=== PATIENT | male | born 1945 | race Caucasian/White ===

== ENCOUNTER → 2017-02-04 | Outpatient (CLI) | payer MEDICARE, BC ==
[~2017-02-04] MED LIST: ASPIRIN E.C. 8181 MG PO; BRILINTA90 MG PO; CRESTOR 10MG10 MG PO; LOVAZA1 GM PO; NITROSTAT0.4 MG/TAB SL; TIROSINT50 MC1 PO; TOPROL XL 50MG50 MG PO; ZESTRIL 20MG TA20 MG PO
== END ==
LOC: COL.VAS 12:21
DX: I36.1 Nonrheumatic tricuspid (valve) insufficiency (principal); I77.819 Aortic ectasia, unspecified site

== ENCOUNTER 2017-03-01 08:52 | Day surgery (SDC) | payer MEDICARE, BC ==
[2017-03-01] VITALS (597 sets, daily range): BP systolic 132–148; BP diastolic 75–94; PULSE 74–96; TEMP 97.8–98.2; O2SAT 93–100
[~2017-03-01] VITALS: Ht 170.3 cm; Wt 78.0 kg
[2017-03-01 09:26] LABS: HEMOGLOBIN 16.5 g/dl (13.5-18.0); MEAN CELL VOLUME 96 fl (80.0-100.0); MEAN CORPUSCULAR HEMOGLOBIN 33 pg (27.0-31.0); MEAN CORPUSCULAR HGB CONC 34 g/dl (33.0-37.0); PLATELET COUNT 221 K/mm3 (130-400); RED BLOOD COUNT 4.98 M/mm3 (4.20-5.60); REDCELL DISTRIBUTION WIDTH-CV 13.1 % (11.5-14.5)
[2017-03-01 09:32] LABS: INR 0.9 (0.8-3.0); PROTHROMBIN TIME 9.5 SECONDS (9.7-12.8)
[2017-03-01 09:46] LABS: CALCIUM 9.2 mg/dL (8.4-10.2); CREATININE, serum 0.83 mg/dL (0.66-1.25); POTASSIUM 4.3 mmol/L (3.4-5.0)
[2017-03-01] MEDS ORDERED: ASPIRIN E.C. 8181 MG PO (09:50)
[2017-03-01] MEDS ORDERED: TOPROL XL 50MG50 MG PO (09:51)
[2017-03-01] MEDS ORDERED: ZESTRIL 20MG TA20 MG PO (09:51)
[2017-03-01] MEDS ORDERED: CRESTOR 10MG10 MG PO (09:52)
[2017-03-01] MEDS ORDERED: TIROSINT50 MC1 PO (09:53)
--- NOTE | 2017-03-01 11:50 | NUR ---
pt to eu 9 via bed from supervisor labor gang, Angiomax infuses at 28cc/hr till gone. Son in room, reviewed bedrest and activity with pt, call light in reach. takes water, no meal ordered at this time, EKG done.
--- NOTE | 2017-03-01 12:35 | NUR ---
report called to Deya in ICU for transfer to #3, explained to pt.
--- NOTE | 2017-03-01 12:40 | NUR ---
ooze to right groin, slab conditioner supervisor calledTerence here con't pressure applied, area remains soft, no c/o back pain. new dressing applied after pressure held
--- NOTE | 2017-03-01 13:00 | NUR ---
Patient groin site has small ooze of blood on dressing femstop pressure increased, charge nurse Deysi HOUSE notified, will continue to monitor.
--- NOTE | 2017-03-01 13:15 | NUR ---
area had ooze, quarter size, surrounding area remains soft. laborer adjustable steel joist called, [place] HOUSE here, stem stop applied with light pressure, approx 20, orders written by laborer adjustable steel joist, site is clean and dry.
--- NOTE | 2017-03-01 13:30 | NUR ---
Patient arrived to the floor via stretcher, vitals stable, patient alert and oriented x4, denies pain, femstop on right groin site, dressing clean, dry, and intact, skin soft, no signs of hematoma, laying flat in bed, no needs expressed at this time, call light within reach, will continue to monitor.
--- NOTE | 2017-03-01 13:35 | NUR ---
pt to ICU 3 via bed, transferred with slide board, femstop remains in place, no changes in assessment after transfer
--- NOTE | 2017-03-01 16:16 | NUR ---
Femop removed, Landon HOUSE pinched the skin for four minutes and applied a new dressing, pulses 2+, will continue to monitor
--- NOTE | 2017-03-01 17:40 | NUR ---
Patient got up to commode to have a BM, after returning back to bed this nurse assessed groin site and a small hematoma had formed, dressing was CDI, pressure applied and Charge Nurse notified at assessed hematoma, held pressure until area became soft, patient pulses remain easily palpable, will continue to monitor.
--- NOTE | 2017-03-01 20:19 | NUR ---
VSS. DENIES CHEST PAIN, REPORTS GROIN SITE TENDER. UP TO TOILET TO VOID. RIGHT GROIN SITE CHECKED AFTER WITHOUT S/S DRAINAGE OR HEMATOMA NOTED. ASSESSMENT PER FLOWSHEET. CALL LIGHT WITHIN REACH. WILL CONTINUE TO MONITOR.
[2017-03-02] VITALS (359 sets, daily range): BP systolic 133–147; BP diastolic 74–82; PULSE 83–95; TEMP 97.4–97.8; O2SAT 92–99
--- NOTE | 2017-03-02 01:57 | NUR ---
up to the bathroom as needed. right groin site remains wnl, without drainage noted. vss. resting in bed, call light within reach.
[2017-03-02 05:34] LABS: HEMATOCRIT 43.3 % (42.0-52.0); HEMOGLOBIN 14.8 g/dl (13.5-18.0); MEAN CELL VOLUME 96 fl (80.0-100.0); MEAN CORPUSCULAR HEMOGLOBIN 33 pg (27.0-31.0); MEAN CORPUSCULAR HGB CONC 34 g/dl (33.0-37.0); MEAN PLATELET VOLUME 9.3 fl (7.4-10.4); PLATELET COUNT 196 K/mm3 (130-400); RED BLOOD COUNT 4.52 M/mm3 (4.20-5.60); REDCELL DISTRIBUTION WIDTH-CV 12.9 % (11.5-14.5)
[2017-03-02 05:54] LABS: CALCIUM 8.6 mg/dL (8.4-10.2); CREATININE, serum 0.82 mg/dL (0.66-1.25); POTASSIUM 3.7 mmol/L (3.4-5.0)
--- NOTE | 2017-03-02 07:10 | NUR ---
Bedside report recieved from LACY Romo. Assessment complete, right femoral groin site soft without hematoma, dressing clean, dry and intact, but very tender to touch. Patient denies needs at this time, call light within reach.
--- NOTE | 2017-03-02 09:02 | NUR ---
NCM met with patient to review discharge plan. Patient lives at home with his and their son here in [place], [place]. Patient lives in one level story house with basement and their son lives in the basement. He does not have advance directives. Patient is completely independent with ADL's and does not use any DME. His PCP is Dr. Torey Gilman, [facility], [place] and uses [facility] for hie medications. Patient plans to return home upon discharge, no anticipated needs.
--- NOTE | 2017-03-02 10:24 | NUR ---
Initial visit; Patient thanked Nylon Winder for looking in on him and offering God's blessings.
[2017-03-02] MEDS ORDERED: BRILINTA90 MG PO (10:44)
--- NOTE | 2017-03-02 10:50 | NUR ---
Patient resting in bed, denies needs at this time.
[2017-03-02] MEDS ORDERED: LOVAZA1 GM PO (11:53)
[2017-03-02] MEDS ORDERED: NITROSTAT0.4 MG/TAB SL (11:54)
--- NOTE | 2017-03-02 12:14 | NUR ---
Discharge instructions given, INT removed (tip intact) questions invited and answered, patient out to private vehicle.
== END 2017-03-02 12:15 | disposition home or self-care (01) ==
LOC: COL.CAR 08:52 → ICU 11:51 → COL.CAR 03-02 12:15
PROVIDERS: Internal Medicine Cardiovascular Disease
DX: R06.02 Shortness of breath (principal); I25.10 Atherosclerotic heart disease of native coronary artery without angina pectoris; R94.39 Abnormal result of other cardiovascular function study
CPT/HCPCS: OP; C1760; C1769; C1874; C1887; C1894; C9600; J0583; J2250; J3010; Q9967

== ENCOUNTER 2017-06-10 00:05 | Inpatient (IN) | payer MEDICARE, BC ==
[2017-06-10] VITALS (671 sets, daily range): BP systolic 102–170; BP diastolic 61–79; PULSE 56–97; TEMP 97–98.6; O2SAT 90–100
[~2017-06-10] VITALS: Ht 167.6 cm; Wt 75.5 kg
[2017-06-10] MEDS ORDERED: PRESERVISION1 SGL PO (00:15)
[2017-06-10] MEDS ORDERED: ZYLOPRIM 100MG100 MG PO (00:15)
[2017-06-10 00:27] LABS: BASO # 0.1 (0.0-0.2); BASO % 0.6 % (0.0-2.0); EOS # 0.3 (0.0-0.7); EOS % 2.2 % (0-4.0); GRAN # 7.9 (1.4-6.5); GRAN % 65.6 % (42.2-75.2); HEMATOCRIT 41.8 % (42.0-52.0); HEMOGLOBIN 13.9 g/dl (13.5-18.0); LYMPH # 2.4 (1.2-3.4); LYMPH % 20.3 % (20.0-51.0); MEAN CELL VOLUME 97 fl (80.0-100.0); MEAN CORPUSCULAR HEMOGLOBIN 32 pg (27.0-31.0); MEAN CORPUSCULAR HGB CONC 33 g/dl (33.0-37.0); MEAN PLATELET VOLUME 9.6 fl (7.4-10.4); MONO # 1.3 (0.1-0.6); MONO % 10.6 % (1.7-9.3); PLATELET COUNT 218 K/mm3 (130-400); RED BLOOD COUNT 4.29 M/mm3 (4.20-5.60)
[2017-06-10 00:29] LABS: INR 0.9 (0.8-3.0); PROTHROMBIN TIME 10.7 SECONDS (9.7-12.8)
[2017-06-10 00:31] LABS: PARTIAL THROMBOPLASTIN TIME 28.3 SECONDS (26.0-37.0)
[2017-06-10 00:33] LABS: ADJUSTED CALCIUM 9.5 mg/dL (8.4-10.2); ALANINE AMINOTRANSFERASE 48 U/L (21-72); ALKALINE PHOSPHATASE 68 U/L (50-136); ANION GAP 11 mmol/L (7-16); BILIRUBIN,TOTAL 0.6 mg/dL (0.0-1.0); BLOOD UREA NITROGEN 10 mg/dL (9-20); CALCIUM 9.5 mg/dL (8.4-10.2); CARBON DIOXIDE 25 mmol/L (22-30); CHLORIDE 104 mmol/L (98-107); CREATININE, serum 0.82 mg/dL (0.66-1.25); GLUCOSE 113 mg/dL (74-106); POTASSIUM 4.1 mmol/L (3.4-5.0); SODIUM 139 mmol/L (137-145); TOTAL PROTEIN 7.3 gm/dL (6.4-8.2)
[2017-06-10 01:14] LABS: TROPONIN-I < 0.012 ng/mL (0.000-0.034)
[2017-06-10 05:02] LABS: BASO # 0.1 (0.0-0.2); BASO % 0.4 % (0.0-2.0); EOS # 0.1 (0.0-0.7); GRAN # 9.4 (1.4-6.5); GRAN % 80.3 % (42.2-75.2); LYMPH # 1.1 (1.2-3.4); LYMPH % 9.5 % (20.0-51.0); MEAN CELL VOLUME 98 fl (80.0-100.0); MEAN CORPUSCULAR HGB CONC 33 g/dl (33.0-37.0); MEAN PLATELET VOLUME 9.7 fl (7.4-10.4); MONO % 8.2 % (1.7-9.3); PLATELET COUNT 175 K/mm3 (130-400); RED BLOOD COUNT 3.54 M/mm3 (4.20-5.60); WHITE BLOOD COUNT 11.7 K/mm3 (4.8-10.8)
[2017-06-10 05:04] LABS: HEMATOCRIT 34.6 % (42.0-52.0); HEMOGLOBIN 11.4 g/dl (13.5-18.0); MEAN CORPUSCULAR HEMOGLOBIN 32 pg (27.0-31.0)
[2017-06-10 05:14] LABS: ADJUSTED CALCIUM 8.9 mg/dL (8.4-10.2); ALBUMIN 2.9 gm/dL (3.5-5.0); BILIRUBIN,TOTAL 0.5 mg/dL (0.0-1.0); CREATININE, serum 0.69 mg/dL (0.66-1.25); POTASSIUM 3.8 mmol/L (3.4-5.0); TOTAL PROTEIN 5.8 gm/dL (6.4-8.2)
[2017-06-10 09:00] LABS: PARTIAL THROMBOPLASTIN TIME 26.1 SECONDS (26.0-37.0)
[2017-06-10 10:33] LABS: MUCOUS Present /lpf; PH 5 (5-8); SQUAMOUS EPITHELIAL 0-2 /hpf; URINE APPEARANCE Clear; URINE BACTERIA None Seen /hpf; URINE BILIRUBIN Negative (NEGATIVE); URINE BLOOD Negative (NEGATIVE); URINE COLOR Yellow; URINE GLUCOSE Negative (NEGATIVE); URINE KETONE Trace (NEGATIVE); URINE LEUKOCYTE ESTERASE Negative (NEGATIVE); URINE PROTEIN(semi-quant) Negative (NEGATIVE); URINE RBC 0-2 /hpf; URINE UROBILINOGEN Negative (NEGATIVE); URINE WBC 0-2 /hpf
[2017-06-10 10:41] LABS: COLLECTION METHOD CLEAN CATCH
[2017-06-10 10:47] LABS: HEMATOCRIT 33.4 % (42.0-52.0)
[2017-06-10 14:45] LABS: HEMATOCRIT 29.8 % (42.0-52.0); HEMOGLOBIN 9.9 g/dl (13.5-18.0)
[2017-06-10 22:05] LABS: HEMATOCRIT 28.6 % (42.0-52.0); HEMOGLOBIN 9.5 g/dl (13.5-18.0)
[2017-06-11] VITALS (422 sets, daily range): BP systolic 120–154; BP diastolic 62–87; PULSE 83–89; TEMP 97.1–98.7; O2SAT 91–100
[2017-06-11 04:23] LABS: CALCIUM 8.1 mg/dL (8.4-10.2); CREATININE, serum 0.66 mg/dL (0.66-1.25); POTASSIUM 3.5 mmol/L (3.4-5.0)
[2017-06-12] VITALS: BP 118/59; PULSE 80; TEMP 98.2
[2017-06-12 04:00] VITALS: BP 113/66; PULSE 85; TEMP 98.9
[2017-06-12 07:35] LABS: BASO % 0.3 % (0.0-2.0); EOS # 0.3 (0.0-0.7); EOS % 1.9 % (0-4.0); GRAN # 9.2 (1.4-6.5); GRAN % 71.5 % (42.2-75.2); LYMPH # 1.7 (1.2-3.4); LYMPH % 12.8 % (20.0-51.0); MEAN CELL VOLUME 101 fl (80.0-100.0); MEAN CORPUSCULAR HGB CONC 32 g/dl (33.0-37.0); MONO # 1.7 (0.1-0.6); MONO % 12.8 % (1.7-9.3); PLATELET COUNT 190 K/mm3 (130-400); RED BLOOD COUNT 3.27 M/mm3 (4.20-5.60); WHITE BLOOD COUNT 12.9 K/mm3 (4.8-10.8)
[2017-06-12 07:56] LABS: CALCIUM 9.5 mg/dL (8.4-10.2); CREATININE, serum 0.72 mg/dL (0.66-1.25); HEMATOCRIT 32.9 % (42.0-52.0); HEMOGLOBIN 10.5 g/dl (13.5-18.0); MEAN CORPUSCULAR HEMOGLOBIN 32 pg (27.0-31.0); POTASSIUM 4.1 mmol/L (3.4-5.0)
[2017-06-12 08:00] VITALS: BP 111/53; PULSE 90; TEMP 98.4
[2017-06-12 12:00] VITALS: BP 114/53; PULSE 82; TEMP 98.7
[2017-06-12] MEDS ORDERED: FERROUS SU325 MG/TAB PO (14:04)
== END 2017-06-12 14:44 | disposition home or self-care (01) | DRG 394 ==
LOC: COL.ER 00:05 → ICU 02:07 → SURG 06-11 14:03 → ICU 06-11 14:03 → SURG 06-12 14:44
PROVIDERS: Emergency Medicine; Family Medicine; Internal Medicine; Nurse Practitioner Family
PROC: 0DBN8ZX Excision of Sigmoid Colon, Via Natural or Artificial Opening Endoscopic, Diagnostic (ICD-10-PCS; principal; 2017-06-09)
PROC: 0W3P8ZZ Control Bleeding in Gastrointestinal Tract, Via Natural or Artificial Opening Endoscopic (ICD-10-PCS; 2017-06-10)
DX: K63.5 Polyp of colon (principal); K62.5 Hemorrhage of anus and rectum; D62 Acute posthemorrhagic anemia; K63.3 Ulcer of intestine; I95.1 Orthostatic hypotension; I10 Essential (primary) hypertension; I25.10 Atherosclerotic heart disease of native coronary artery without angina pectoris; E78.5 Hyperlipidemia, unspecified; M10.9 Gout, unspecified; E03.9 Hypothyroidism, unspecified; K57.30 Diverticulosis of large intestine without perforation or abscess without bleeding; Z95.5 Presence of coronary angioplasty implant and graft; Z87.891 Personal history of nicotine dependence; Z86.73 Personal history of transient ischemic attack (TIA), and cerebral infarction without residual deficits
CPT/HCPCS: 99223-AI; 99233-AI; 99239; C9113; G8987-GO; G8988-GO; J1644; J2250; J3010; J7030

== ENCOUNTER 2017-06-21 15:16 | Outpatient (RCR) | payer MEDICARE, BC ==
[~2017-06-21 15:16] MED LIST changes: +FERROUS SU325 MG/TAB PO; +PRESERVISION1 SGL PO; +ZYLOPRIM 100MG100 MG PO
== END 2017-06-24 | disposition home or self-care (01) ==
LOC: COL.CR
DX: Z48.812 Encounter for surgical aftercare following surgery on the circulatory system (principal); Z95.5 Presence of coronary angioplasty implant and graft; I25.10 Atherosclerotic heart disease of native coronary artery without angina pectoris

== ENCOUNTER 2017-07-02 14:34 | Outpatient (RCR) | payer MEDICARE, BC | END 2017-07-07 12:54 | disposition home or self-care (01) | LOC: COL.CR 14:34 | DX: Z48.812 Encounter for surgical aftercare following surgery on the circulatory system (principal); Z95.5 Presence of coronary angioplasty implant and graft; I25.10 Atherosclerotic heart disease of native coronary artery without angina pectoris ==

== ENCOUNTER 2017-09-10 10:03 | Emergency (ER) | payer MEDICARE, BC ==
[~2017-09-10] VITALS: Ht 167.6 cm; Wt 75.0 kg
[2017-09-10 10:09] VITALS: BP 143/93; PULSE 106; TEMP 976
[2017-09-10 11:00] LABS: BASO # 0.1 (0.0-0.2); EOS # 0.3 (0.0-0.7); EOS % 4.5 % (0-4.0); GRAN # 4.1 (1.4-6.5); GRAN % 64.5 % (42.2-75.2); HEMATOCRIT 46.3 % (42.0-52.0); HEMOGLOBIN 15.4 g/dl (13.5-18.0); LYMPH # 1.3 (1.2-3.4); LYMPH % 20.1 % (20.0-51.0); MEAN CELL VOLUME 96 fl (80.0-100.0); MEAN CORPUSCULAR HEMOGLOBIN 32 pg (27.0-31.0); MEAN CORPUSCULAR HGB CONC 33 g/dl (33.0-37.0); MONO # 0.6 (0.1-0.6); MONO % 9.3 % (1.7-9.3); PLATELET COUNT 275 K/mm3 (130-400); RED BLOOD COUNT 4.85 M/mm3 (4.20-5.60); REDCELL DISTRIBUTION WIDTH-CV 13.3 % (11.5-14.5)
[2017-09-10 11:03] LABS: INR 0.9 (0.8-3.0); PROTHROMBIN TIME 10.9 SECONDS (9.7-12.8)
[2017-09-10 11:09] LABS: ALBUMIN 4.3 gm/dL (3.5-5.0); BILIRUBIN,TOTAL 0.3 mg/dL (0.0-1.0); CALCIUM 9.3 mg/dL (8.4-10.2); CREATININE, serum 0.76 mg/dL (0.66-1.25); POTASSIUM 4.4 mmol/L (3.4-5.0); TOTAL PROTEIN 7.9 gm/dL (6.4-8.2)
[2017-09-10] MEDS ORDERED: AMOXICILLIN 8751 TAB PO (12:06)
[2017-09-10] MEDS ORDERED: NORCO 325 MG-51 TAB PO (12:06)
== END 2017-09-10 12:30 | disposition home or self-care (01) ==
LOC: COL.ER 10:03
PROVIDERS: Family Medicine
DX: S02.2XXA Fracture of nasal bones, initial encounter for closed fracture (principal); R04.0 Epistaxis; I48.91 Unspecified atrial fibrillation; Z79.82 Long term (current) use of aspirin; W01.198A Fall on same level from slipping, tripping and stumbling with subsequent striking against other object, initial encounter

== ENCOUNTER 2018-02-13 09:54 | Inpatient (IN) | payer MEDICARE, BC ==
[~2018-02-13] VITALS: Ht 167.6 cm; Wt 75.5 kg
[2018-02-13] VITALS (7 sets, daily range): BP systolic 115–139; BP diastolic 56–77; PULSE 77–98; TEMP 98.2–98.6
[~2018-02-13 09:54] MED LIST changes: +AMOXICILLIN 8751 TAB PO; +NORCO 325 MG-51 TAB PO
[2018-02-13 10:25] LABS: BASO # 0.1 (0.0-0.2); BASO % 1.2 % (0.0-2.0); EOS # 0.1 (0.0-0.7); EOS % 1.8 % (0-4.0); GRAN # 4.5 (1.4-6.5); GRAN % 68.8 % (42.2-75.2); HEMATOCRIT 44.6 % (42.0-52.0); HEMOGLOBIN 15.2 g/dl (13.5-18.0); LYMPH % 15.4 % (20.0-51.0); MEAN CELL VOLUME 94 fl (80.0-100.0); MEAN CORPUSCULAR HEMOGLOBIN 32 pg (27.0-31.0); MEAN CORPUSCULAR HGB CONC 34 g/dl (33.0-37.0); MEAN PLATELET VOLUME 9.2 fl (7.4-10.4); MONO # 0.8 (0.1-0.6); MONO % 12.2 % (1.7-9.3); PLATELET COUNT 202 K/mm3 (130-400); RED BLOOD COUNT 4.74 M/mm3 (4.20-5.60)
[2018-02-13 10:29] LABS: INR 0.9 (0.8-3.0); PROTHROMBIN TIME 10.3 SECONDS (9.7-12.8)
[2018-02-13 10:32] LABS: PARTIAL THROMBOPLASTIN TIME 30.5 SECONDS (26.0-37.0)
[2018-02-13 10:41] LABS: ALBUMIN 4.2 gm/dL (3.5-5.0); BILIRUBIN,TOTAL 0.7 mg/dL (0.0-1.0); CALCIUM 9.2 mg/dL (8.4-10.2); CREATININE, serum 0.73 mg/dL (0.66-1.25); POTASSIUM 3.9 mmol/L (3.4-5.0); TOTAL PROTEIN 7.8 gm/dL (6.4-8.2)
[2018-02-13 13:21] LABS: BASO # 0.1 (0.0-0.2); BASO % 0.6 % (0.0-2.0); EOS % 0.3 % (0-4.0); GRAN # 9.6 (1.4-6.5); GRAN % 86.3 % (42.2-75.2); HEMATOCRIT 38.1 % (42.0-52.0); LYMPH # 0.7 (1.2-3.4); LYMPH % 6.4 % (20.0-51.0); MEAN CELL VOLUME 95 fl (80.0-100.0); MEAN CORPUSCULAR HEMOGLOBIN 32 pg (27.0-31.0); MEAN CORPUSCULAR HGB CONC 33 g/dl (33.0-37.0); MEAN PLATELET VOLUME 9.9 fl (7.4-10.4); MONO # 0.7 (0.1-0.6); MONO % 5.9 % (1.7-9.3); PLATELET COUNT 180 K/mm3 (130-400); RED BLOOD COUNT 4.03 M/mm3 (4.20-5.60)
[2018-02-13 13:22] LABS: HEMOGLOBIN 12.7 g/dl (13.5-18.0)
[2018-02-13 17:11] LABS: HEMOGLOBIN 12.5 g/dl (13.5-18.0)
[2018-02-13 17:12] LABS: HEMATOCRIT 35.5 % (42.0-52.0)
[2018-02-13 21:20] LABS: HEMOGLOBIN 11.6 g/dl (13.5-18.0)
[2018-02-13 21:30] LABS: HEMATOCRIT 33.6 % (42.0-52.0)
[2018-02-14] VITALS (19 sets, daily range): BP systolic 105–148; BP diastolic 35–81; PULSE 75–104; TEMP 98–99.3
[2018-02-14 01:04] LABS: HEMATOCRIT 29.6 % (42.0-52.0); HEMOGLOBIN 10.1 g/dl (13.5-18.0)
[2018-02-14 06:10] LABS: BASO # 0.1 (0.0-0.2); BASO % 0.7 % (0.0-2.0); EOS # 0.1 (0.0-0.7); EOS % 1.2 % (0-4.0); GRAN # 6.6 (1.4-6.5); GRAN % 72.5 % (42.2-75.2); LYMPH # 1.1 (1.2-3.4); LYMPH % 12.1 % (20.0-51.0); MEAN CELL VOLUME 96 fl (80.0-100.0); MEAN CORPUSCULAR HGB CONC 33 g/dl (33.0-37.0); MEAN PLATELET VOLUME 10.1 fl (7.4-10.4); MONO # 1.2 (0.1-0.6); MONO % 12.8 % (1.7-9.3); PLATELET COUNT 141 K/mm3 (130-400); RED BLOOD COUNT 2.72 M/mm3 (4.20-5.60); REDCELL DISTRIBUTION WIDTH-CV 14.2 % (11.5-14.5)
[2018-02-14 06:12] LABS: HEMATOCRIT 26.2 % (42.0-52.0); HEMOGLOBIN 8.7 g/dl (13.5-18.0); MEAN CORPUSCULAR HEMOGLOBIN 32 pg (27.0-31.0)
[2018-02-14 06:22] LABS: ALBUMIN 2.5 gm/dL (3.5-5.0); BILIRUBIN,TOTAL 1.1 mg/dL (0.0-1.0); CALCIUM 7.1 mg/dL (8.4-10.2); CREATININE, serum 0.61 mg/dL (0.66-1.25); POTASSIUM 3.5 mmol/L (3.4-5.0); TOTAL PROTEIN 5.1 gm/dL (6.4-8.2)
[2018-02-14 09:13] LABS: HEMATOCRIT 26.1 % (42.0-52.0); HEMOGLOBIN 8.9 g/dl (13.5-18.0)
[2018-02-14 15:54] LABS: MEAN CELL VOLUME 93 fl (80.0-100.0); MEAN CORPUSCULAR HGB CONC 34 g/dl (33.0-37.0); PLATELET COUNT 118 K/mm3 (130-400); RED BLOOD COUNT 2.65 M/mm3 (4.20-5.60); REDCELL DISTRIBUTION WIDTH-CV 14.1 % (11.5-14.5)
[2018-02-14 15:58] LABS: HEMATOCRIT 24.7 % (42.0-52.0); HEMOGLOBIN 8.5 g/dl (13.5-18.0); MEAN CORPUSCULAR HEMOGLOBIN 32 pg (27.0-31.0)
[2018-02-14 21:55] LABS: MEAN CELL VOLUME 93 fl (80.0-100.0); MEAN CORPUSCULAR HGB CONC 35 g/dl (33.0-37.0); MEAN PLATELET VOLUME 9.8 fl (7.4-10.4); PLATELET COUNT 105 K/mm3 (130-400); RED BLOOD COUNT 2.35 M/mm3 (4.20-5.60); REDCELL DISTRIBUTION WIDTH-CV 14.1 % (11.5-14.5)
[2018-02-14 22:02] LABS: HEMATOCRIT 21.8 % (42.0-52.0); HEMOGLOBIN 7.6 g/dl (13.5-18.0); MEAN CORPUSCULAR HEMOGLOBIN 32 pg (27.0-31.0)
[2018-02-15] VITALS (14 sets, daily range): BP systolic 115–152; BP diastolic 62–81; PULSE 71–112; TEMP 98–99.1
[2018-02-15 03:11] LABS: HEMATOCRIT 24.9 % (42.0-52.0); HEMOGLOBIN 8.5 g/dl (13.5-18.0)
[2018-02-15 06:31] LABS: BASO % 0.5 % (0.0-2.0); EOS # 0.1 (0.0-0.7); EOS % 1.6 % (0-4.0); GRAN # 5.2 (1.4-6.5); GRAN % 64.3 % (42.2-75.2); LYMPH # 1.5 (1.2-3.4); LYMPH % 18.8 % (20.0-51.0); MEAN CELL VOLUME 93 fl (80.0-100.0); MEAN CORPUSCULAR HGB CONC 34 g/dl (33.0-37.0); MEAN PLATELET VOLUME 10.2 fl (7.4-10.4); MONO # 1.1 (0.1-0.6); MONO % 14.1 % (1.7-9.3); PLATELET COUNT 110 K/mm3 (130-400); RED BLOOD COUNT 2.65 M/mm3 (4.20-5.60); REDCELL DISTRIBUTION WIDTH-CV 14.5 % (11.5-14.5)
[2018-02-15 06:42] LABS: HEMATOCRIT 24.5 % (42.0-52.0); HEMOGLOBIN 8.4 g/dl (13.5-18.0); MEAN CORPUSCULAR HEMOGLOBIN 32 pg (27.0-31.0)
[2018-02-15 06:53] LABS: CALCIUM 7.1 mg/dL (8.4-10.2); CREATININE, serum 0.6 mg/dL (0.66-1.25); POTASSIUM 3.2 mmol/L (3.4-5.0)
[2018-02-15 14:15] LABS: HEMATOCRIT 26.8 % (42.0-52.0); HEMOGLOBIN 9.5 g/dl (13.5-18.0)
[2018-02-15] MEDS ORDERED: FERROUS SU325 MG/TAB PO (14:23)
[2018-02-15] MEDS ORDERED: FOLIC ACID 11 MG/TA1 PO (14:24)
[2018-02-15] MEDS ORDERED: THIAMINE 1100 MG/TAB PO (14:24)
== END 2018-02-15 15:30 | disposition home or self-care (01) | DRG 378 ==
LOC: COL.ER 09:54 → SURG 12:07
PROVIDERS: Emergency Medicine; Family Medicine; Hospitalist; Internal Medicine Gastroenterology; Physician Assistant
PROC: 0DJD8ZZ Inspection of Lower Intestinal Tract, Via Natural or Artificial Opening Endoscopic (ICD-10-PCS; principal; 2018-02-14 12:30)
DX: K57.31 Diverticulosis of large intestine without perforation or abscess with bleeding (principal); D62 Acute posthemorrhagic anemia; D12.2 Benign neoplasm of ascending colon; I25.10 Atherosclerotic heart disease of native coronary artery without angina pectoris; Z95.5 Presence of coronary angioplasty implant and graft; I10 Essential (primary) hypertension; Z87.891 Personal history of nicotine dependence; E87.6 Hypokalemia; E78.5 Hyperlipidemia, unspecified; F10.20 Alcohol dependence, uncomplicated
CPT/HCPCS: OP; 99223-AI; 99232-AI; 99239; G0378; J2704; J7030; P9016; Q9967

== ENCOUNTER 2018-08-06 11:59 | Emergency (ER) | payer MEDICARE, BC ==
[~2018-08-06] VITALS: Ht 167.6 cm; Wt 77.3 kg
[~2018-08-06 11:59] MED LIST changes: +FOLIC ACID 11 MG/TA1 PO; +THIAMINE 1100 MG/TAB PO
[2018-08-06 12:02] VITALS: BP 122/66; TEMP 99
[2018-08-06] MEDS ORDERED: COLCRYS0.6 MG PO (12:22)
[2018-08-06] MEDS ORDERED: ASPIRIN 81M81 MG/TA2 PO (12:23)
[2018-08-06] MEDS ORDERED: FLEXERIL 1010 MG/TAB PO (13:21)
[2018-08-06] MEDS ORDERED: NORCO 325 MG-51 TAB PO (13:21)
[2018-08-06 13:41] VITALS: PULSE 89
== END 2018-08-06 13:41 | disposition home or self-care (01) ==
LOC: COL.ER 11:59
DX: M54.42 Lumbago with sciatica, left side (principal); M54.41 Lumbago with sciatica, right side; I10 Essential (primary) hypertension

== ENCOUNTER → 2018-12-20 | Outpatient (CLI) | payer MEDICARE, BC ==
[~2018-12-20] MED LIST changes: +ASPIRIN 81M81 MG/TA2 PO; +COLCRYS0.6 MG PO; +FLEXERIL 1010 MG/TAB PO
== END ==
LOC: COL.RAD 12:37
DX: M47.26 Other spondylosis with radiculopathy, lumbar region (principal)

== ENCOUNTER 2019-03-07 10:04 | Inpatient (IN) | payer MEDICARE, BC ==
[~2019-03-07] VITALS: Ht 167.6 cm; Wt 80.2 kg
[2019-03-22] VITALS (9 sets, daily range): BP systolic 115–146; BP diastolic 43–72; PULSE 53–75; TEMP 97–98.5
[2019-03-22] MEDS ORDERED: PREDNISONE10 MG PO (07:43)
[2019-03-22] MEDS ORDERED: REVATIO20 MG PO (07:48)
--- NOTE | 2019-03-22 12:07 | NUR ---
PT ADMITTED AMBULATORY TO ROOM 332. ASSESSMENTS COMPLETE, IV TO RIGHT WRIST FLUIDS RUNNING PER ORDERS. PRE OP MEDS GIVEN ORDERED.
--- NOTE | 2019-03-22 16:14 | NUR ---
PT TO ROOM 332 PER BED WITH [facility] CASE MANAGER REPORT @ 1550. PT IS A/O X3, LUNGS CLEAR DRESSING TO LEFT HIP CDI WITH FOAM TAPE OVER INCISION. PEDAL PULSES PALPABLE. IV TO PUMP, TEDS AND SCDS BILATERALLY.
--- NOTE | 2019-03-22 20:00 | NUR ---
PATIENT IS A&O. VSS. NO C/O PAIN. PATIENT AMBULATED IN HALLWAY DOWN TO THE MEDICAL UNIT AND BACK WITHOUT DIFFICULTY. GAIT STEADY. PAIN WELL MANAGED. RIGHT HIP DRESSING IS CD&I.
--- NOTE | 2019-03-23 01:00 | NUR ---
PATIENT STILL UNABLE TO VOID POST OP. PATIENT DENIES URGE. BLADDER SCAN SHOWED 205CC. WILL CONTINUE TO MONITOR
--- NOTE | 2019-03-23 03:30 | NUR ---
PATIENT AMBULATED TO BATHROOM AND WAS ABLE TO VOI 425CC OF LUIS ENRIQUE COLORED URINE. PATIENT BACK IN BED RESTING. NO C/O PAIN. NO NEEDS.
[2019-03-23 03:34] VITALS: BP 118/61; PULSE 68; TEMP 97.8
[2019-03-23 06:44] LABS: HEMATOCRIT 35.6 % (42.0-52.0)
--- NOTE | 2019-03-23 08:12 | NUR ---
Patient A&O, denies pain and discomfort. VSS. IV CDI. Occlusive dressing left hip, CDI. Patient instructed to call nursing staff for assistance back to bed. Patient was assisted to BSC by nursing staff and walked self back to bed without assistance. PT walked by patients room and saw patient on hands and knees with buttucks in the air trying to get back into bed. Patient verbalized that he will call nursing staff for assistance. No further needs expressed from patient. Call light within reach
[2019-03-23 08:55] VITALS: BP 116/55; PULSE 79; TEMP 98.1
--- NOTE | 2019-03-23 10:35 | NUR ---
First visit from the cloth pattern maker. No needs right now.
[2019-03-23] MEDS ORDERED: NORCO 325 MG-7.1 TAB PO (12:00)
[2019-03-23] MEDS ORDERED: XARELTO10 MG PO (12:00)
[2019-03-23] MEDS ORDERED: ROXICODONE 55 MG/TAB PO (12:03)
[2019-03-23 12:36] VITALS: BP 120/50; PULSE 85; TEMP 99
--- NOTE | 2019-03-23 15:11 | NUR ---
SW met with patient to discuss discharge planning. Patient lives independently at home with is and plans to return there later today. Patient's PCP is Dr Gilman and he obtains prescriptions from [facility]. Patient has a walker and cane for ambulation but does not require any other DME. Patient's doctor reports patient will not require formal PT post op. SW does not anticipate any discharge needs.
--- NOTE | 2019-03-23 15:20 | NUR ---
Discharge paperwork reviewed with patient and family. Patient verbalized an understanding of following doctors orders. Signs and symptoms and incision care reviewed with patient. IV removed, tip intact, patient tolerated well. Gauze and bandaid applied. Patient transfered by wheelchair by nursing staff to vehicle. Family, personal belongings and discharge paperwork with patient. No further needs expressed from patient.
== END 2019-03-23 15:26 | disposition home or self-care (01) | DRG 470 ==
LOC: JCC 03-22 07:30
PROVIDERS: ADMIT Orthopaedic Surgery
PROC: 0SRB0JZ Replacement of Left Hip Joint with Synthetic Substitute, Open Approach (ICD-10-PCS; principal; 2019-03-22 13:00)
DX: M16.12 Unilateral primary osteoarthritis, left hip (principal); M81.0 Age-related osteoporosis without current pathological fracture; E78.00 Pure hypercholesterolemia, unspecified; I10 Essential (primary) hypertension; Z87.891 Personal history of nicotine dependence
CPT/HCPCS: A9284; C1776; J0690; J1100; J1885; J2250; J2405; J2704; J3010; J7120

== ENCOUNTER → 2019-03-15 | Outpatient (CLI) | payer MEDICARE, BC | LOC: COL.LAB 11:47 | DX: Z01.812 Encounter for preprocedural laboratory examination (principal) ==

== ENCOUNTER 2019-08-19 12:19 | Observation (INO) | payer MEDICARE, BC ==
[~2019-08-19] VITALS: Ht 167.6 cm; Wt 83.3 kg
[~2019-08-19 12:19] MED LIST changes: +NORCO 325 MG-7.1 TAB PO; +PREDNISONE10 MG PO; +REVATIO20 MG PO; +ROXICODONE 55 MG/TAB PO; -TOPROL XL 50MG50 MG PO; +XARELTO10 MG PO
[2019-08-19 12:42] LABS: BASO # 0.1 (0.0-0.2); BASO % 0.7 % (0.0-2.0); EOS # 0.1 (0.0-0.7); EOS % 1.1 % (0-4.0); GRAN # 5.1 (1.4-6.5); GRAN % 64.2 % (42.2-75.2); HEMATOCRIT 40.8 % (42.0-52.0); HEMOGLOBIN 13.8 g/dl (13.5-18.0); LYMPH # 1.9 (1.2-3.4); LYMPH % 24.1 % (20.0-51.0); MEAN CELL VOLUME 93 fl (80.0-100.0); MEAN CORPUSCULAR HEMOGLOBIN 31 pg (27.0-31.0); MEAN CORPUSCULAR HGB CONC 34 g/dl (33.0-37.0); MEAN PLATELET VOLUME 9.4 fl (7.4-10.4); MONO # 0.8 (0.1-0.6); MONO % 9.5 % (1.7-9.3); PLATELET COUNT 152 K/mm3 (130-400); REDCELL DISTRIBUTION WIDTH-CV 13.7 % (11.5-14.5)
[2019-08-19 12:48] VITALS: BP 136/73; PULSE 70
[2019-08-19 12:53] LABS: ALANINE AMINOTRANSFERASE 61 U/L (21-72); ALBUMIN 4.3 gm/dL (3.5-5.0); ALCOHOL(ethanol),MEDICAL 101 mg/dL; ALKALINE PHOSPHATASE 68 U/L (50-136); ANION GAP 14 mmol/L (7-16); AST,SGOT 83 U/L (15-37); BILIRUBIN,TOTAL 0.7 mg/dL (0.0-1.0); BLOOD UREA NITROGEN 15 mg/dL (9-20); CALCIUM 8.7 mg/dL (8.4-10.2); CARBON DIOXIDE 20 mmol/L (22-30); CHLORIDE 105 mmol/L (98-107); CREATININE, serum 1.07 (0.66-1.25); GLUCOSE 113 mg/dL (74-106); MAGNESIUM 1.9 mg/dL (1.6-2.3); POTASSIUM 4.3 mmol/L (3.4-5.0); SODIUM 138 mmol/L (137-145); TOTAL PROTEIN 7.6 gm/dL (6.4-8.2)
[2019-08-19 13:09] LABS: TROPONIN-I < 0.012 ng/mL (0.000-0.035)
[2019-08-19 13:48] LABS: COLLECTION METHOD CLEAN CATCH
[2019-08-19 14:18] LABS: MUCOUS Present /lpf; PH 5 (5-8); SQUAMOUS EPITHELIAL 0-2 /hpf; URINE APPEARANCE Hazy; URINE BACTERIA None Seen /hpf; URINE BILIRUBIN Negative (NEGATIVE); URINE BLOOD 2+ (NEGATIVE); URINE COLOR Yellow; URINE GLUCOSE Negative (NEGATIVE); URINE KETONE Negative (NEGATIVE); URINE LEUKOCYTE ESTERASE Negative (NEGATIVE); URINE NITRATE Negative (NEGATIVE); URINE PROTEIN(semi-quant) 1+ (NEGATIVE); URINE RBC 0-2 /hpf; URINE UROBILINOGEN Negative (NEGATIVE)
[2019-08-19] MEDS ORDERED: VTAMINC250TA (15:39)
[2019-08-19 17:23] VITALS: BP 146/76; PULSE 91; TEMP 97.9
--- NOTE | 2019-08-19 18:43 | NUR ---
Patient is A/O with tremor. Patient speech is clear. Denies any pain. Vitals are within parameters. He scored 8 on CIWA. I gave 1mg of Ativan. Patient is currently resting in bed.
[2019-08-19 19:04] VITALS: BP 132/74; PULSE 91; TEMP 98.2
[2019-08-19 21:50] VITALS: BP 121/55; PULSE 90; TEMP 99
--- NOTE | 2019-08-19 23:20 | NUR ---
RESTING/SLEEPING. NO CHANGE IN MENTAL STATUS. PT COOPERATIVE. PT HAS NOT SCORED HIGH ENOUGH FOR ATIVAN THE LAST 2 DETOX EVALS.
[2019-08-19 23:25] VITALS: BP 117/58; PULSE 84; TEMP 98.4
[2019-08-20 02:16] VITALS: BP 117/62; PULSE 87; TEMP 98.6
[2019-08-20 04:00] VITALS: BP 132/64; PULSE 87; TEMP 98.9
[2019-08-20 06:05] VITALS: BP 96/44; PULSE 77; TEMP 98.7
--- NOTE | 2019-08-20 06:28 | NUR ---
PT IN BED. NO N/V. ALERT AND ORIENTED x3. SOME MILD TREMORS HAS BEEN THE ONLY CONSTANT THING NOTED ON PT TONIGHT.
[2019-08-20 07:48] VITALS: BP 124/68; PULSE 81; TEMP 98.8
--- NOTE | 2019-08-20 09:02 | NUR ---
Pt assessment complete. Pt is sitting on side of bed upon entry, he is A/O x4. His breathing is even and unlabored on RA. Pt denies any pain or SOB. No N/V this am. Dizziness and nausea on movement has improved. No hallucinations present. Tremors visible but does not meet criteria for Ativan at this time. IVF infusing without complications. Pt has no needs at this time. Call light within reach.
[2019-08-20 09:33] LABS: BASO # 0.1 (0.0-0.2); BASO % 0.9 % (0.0-2.0); EOS # 0.1 (0.0-0.7); EOS % 1.2 % (0-4.0); GRAN # 5.1 (1.4-6.5); GRAN % 67.5 % (42.2-75.2); LYMPH # 1.1 (1.2-3.4); LYMPH % 15.2 % (20.0-51.0); MEAN CELL VOLUME 93 fl (80.0-100.0); MEAN CORPUSCULAR HEMOGLOBIN 32 pg (27.0-31.0); MEAN CORPUSCULAR HGB CONC 34 g/dl (33.0-37.0); MEAN PLATELET VOLUME 10.3 fl (7.4-10.4); MONO # 1.1 (0.1-0.6); MONO % 14.9 % (1.7-9.3); PLATELET COUNT 128 K/mm3 (130-400); REDCELL DISTRIBUTION WIDTH-CV 13.6 % (11.5-14.5)
[2019-08-20 09:36] LABS: HEMATOCRIT 35.5 % (42.0-52.0)
[2019-08-20 09:44] LABS: CALCIUM 8.4 mg/dL (8.4-10.2); CREATININE, serum 0.83 (0.66-1.25); POTASSIUM 4.2 mmol/L (3.4-5.0)
[2019-08-20 10:10] VITALS: BP 123/67; PULSE 79; TEMP 99
[2019-08-20] MEDS ORDERED: TOPROL XL 50MG50 MG PO (13:25)
== END 2019-08-20 14:53 | disposition home or self-care (01) ==
LOC: COL.ER 12:19 → MEDICAL 14:21
PROVIDERS: Emergency Medicine; ADMIT Hospitalist
DX: R55 Syncope and collapse (principal); I10 Essential (primary) hypertension; E78.5 Hyperlipidemia, unspecified; F10.20 Alcohol dependence, uncomplicated; M10.9 Gout, unspecified; I08.1 Rheumatic disorders of both mitral and tricuspid valves; Z79.82 Long term (current) use of aspirin; Z87.891 Personal history of nicotine dependence
CPT/HCPCS: G0378; J1650; J2060; J3411; J3475; J7030

== ENCOUNTER 2020-04-26 07:12 | Day surgery (SDC) | payer MEDICARE, BC ==
[~2020-04-26] VITALS: Ht 170.2 cm; Wt 73.1 kg
[~2020-04-26 07:12] MED LIST changes: +TOPROL XL 50MG50 MG PO; +VTAMINC250TA
[2020-04-26] MEDS ORDERED: REVATIO20 MG PO (07:30)
[2020-04-26 07:37] VITALS: BP 115/69; PULSE 75; TEMP 97.8
[2020-04-26 08:50] VITALS: BP 107/60; PULSE 60; TEMP 98
--- NOTE | 2020-04-26 08:50 | NUR ---
TO BAY 5 VIA CART FROM ENDO ROOM, WALKED TO CHAIR, CALL LIGHT IN REACH. IN ROOM. DECLINES DRINK OR SNACK.
[2020-04-26 09:05] VITALS: BP 107/60; PULSE 60
[2020-04-26 09:20] VITALS: BP 111/68; PULSE 60
--- NOTE | 2020-04-26 09:20 | NUR ---
DR CESPEDES SEE PT, PT UP IN ROOM DRESSED, IV D'CD. REVIEWED DISCHARGE INST. WITH PT AND ON ACTIVITY, FOLLOWUP, PRECAUTIONS WITH VERBAL UNDERSTANDING. PT WAS DISCHARGED VIA W/C TO CAR AT 0986
== END 2020-04-26 09:25 | disposition home or self-care (01) ==
LOC: SDCO 07:12
DX: Z12.11 Encounter for screening for malignant neoplasm of colon (principal); D12.2 Benign neoplasm of ascending colon; D12.5 Benign neoplasm of sigmoid colon; K57.30 Diverticulosis of large intestine without perforation or abscess without bleeding; Z96.641 Presence of right artificial hip joint; I25.10 Atherosclerotic heart disease of native coronary artery without angina pectoris; I10 Essential (primary) hypertension; Z86.010 Personal history of colon polyps; I25.2 Old myocardial infarction; Z95.5 Presence of coronary angioplasty implant and graft; Z87.891 Personal history of nicotine dependence
CPT/HCPCS: J2704; J7120

== ENCOUNTER 2020-10-15 10:46 | Inpatient (IN) | payer MEDICARE, BC ==
[~2020-10-15] VITALS: Ht 170.2 cm; Wt 79.4 kg
--- NOTE | 2020-10-15 11:30 | NUR ---
arrived on unit per WC to room 310, provided gown and will change independently and then into bed
[2020-10-15 11:59] VITALS: BP 108/51; PULSE 69; TEMP 98
[2020-10-15 12:05] LABS: INR 1.1 (0.8-3.0); PROTHROMBIN TIME 12.3 SECONDS (9.7-12.8)
[2020-10-15 12:08] LABS: ALBUMIN 4.5 gm/dL (3.5-5.0); BILIRUBIN,TOTAL 0.3 mg/dL (0.0-1.0); CALCIUM 9.4 mg/dL (8.4-10.2); MAGNESIUM 2.2 mg/dL (1.6-2.3); POTASSIUM 4.6 mmol/L (3.4-5.0); TOTAL PROTEIN 9.2 gm/dL (6.4-8.2)
[2020-10-15 12:13] LABS: CREATININE, serum 16.41 (0.66-1.25)
[2020-10-15 12:18] LABS: BASO # 0.1 (0.0-0.2); BASO % 0.5 % (0.0-2.0); EOS # 0.1 (0.0-0.7); EOS % 0.5 % (0-4.0); HEMATOCRIT 39.5 % (42.0-52.0); HEMOGLOBIN 13.2 g/dl (13.5-18.0); LYMPH # 1.2 (1.2-3.4); LYMPH % 10.2 % (20.0-51.0); MEAN CELL VOLUME 94 fl (80.0-100.0); MEAN CORPUSCULAR HEMOGLOBIN 31 pg (27.0-31.0); MEAN CORPUSCULAR HGB CONC 33 g/dl (33.0-37.0); MEAN PLATELET VOLUME 10.7 fl (7.4-10.4); MONO # 1.1 (0.1-0.6); MONO % 9.4 % (1.7-9.3); PLATELET COUNT 268 K/mm3 (130-400); RED BLOOD COUNT 4.22 M/mm3 (4.20-5.60); REDCELL DISTRIBUTION WIDTH-CV 14.1 % (11.5-14.5)
--- NOTE | 2020-10-15 12:45 | NUR ---
admission assessment complted, see intervention for further info, IV fluids started
[2020-10-15] MEDS ORDERED: ZOFRAN 4MG T4 MG/TAB PO (12:47)
--- NOTE | 2020-10-15 13:00 | NUR ---
spoke with Dr Orr via phone and notified him of lab results
--- NOTE | 2020-10-15 13:15 | NUR ---
calhoun catheter inserted under sterile technique, only approx 50ml clear yellow urine returned and specimen obtained and sent to lab, lab in and blood drawn for fraction excretion of sodium
--- NOTE | 2020-10-15 13:30 | NUR ---
IV fluid rtae increased per order, he is resting in bed and has ordered something to eat
[2020-10-15 13:31] LABS: COLLECTION METHOD CATHETER
[2020-10-15 13:40] LABS: AMORPHOUS CRYSTAL Present /uL; PH 5 (5-8); URINE APPEARANCE Cloudy; URINE BACTERIA Rare /hpf; URINE BILIRUBIN Negative (NEGATIVE); URINE BLOOD 3+ (NEGATIVE); URINE COLOR Yellow; URINE GLUCOSE Negative (NEGATIVE); URINE KETONE Negative (NEGATIVE); URINE LEUKOCYTE ESTERASE Negative (NEGATIVE); URINE NITRATE Negative (NEGATIVE); URINE PROTEIN(semi-quant) 1+ (NEGATIVE); URINE UROBILINOGEN Negative (NEGATIVE)
--- NOTE | 2020-10-15 14:17 | NUR ---
appears to be dozing, in bed with lights off, eyes closed, resp quiet and easy
--- NOTE | 2020-10-15 14:37 | NUR ---
notified Dr Cali that patient has only had 30ml out of calhoun in the last hour,
--- NOTE | 2020-10-15 15:15 | NUR ---
to radiology per WC for CT scan and has returned per WC, assisted into bed,
[2020-10-15 15:52] VITALS: BP 88/35; PULSE 63; TEMP 97.8
--- NOTE | 2020-10-15 16:57 | NUR ---
Dr Orr in to see patient
[2020-10-15 17:59] VITALS: BP 101/60
[2020-10-15 18:22] LABS: CALCIUM 8.3 mg/dL (8.4-10.2); POTASSIUM 4.4 mmol/L (3.4-5.0)
[2020-10-15 18:28] LABS: CREATININE, serum 15.24 (0.66-1.25)
--- NOTE | 2020-10-15 18:56 | NUR ---
bedside shift report given to LACY Parra
[2020-10-15 19:34] VITALS: BP 112/54; PULSE 67; TEMP 97.9
--- NOTE | 2020-10-15 20:00 | NUR ---
Assessment complete. Patient is alert and oriented with no complaints of pain. IV fluids infusing into left forearm IV; indwelling calhoun catheter draining clear, yellow urine. Lung sounds clear. No edema is present. Call light in reach. Will continue to monitor.
[2020-10-15 22:26] LABS: PHOSPHOROUS 13.1 mg/dL (2.5-4.5)
[2020-10-15 23:23] VITALS: BP 92/38; PULSE 66; TEMP 97.8
[2020-10-15 23:45] VITALS: BP 108/59
[2020-10-16 00:48] LABS: CALCIUM 7.8 mg/dL (8.4-10.2); CREATININE, serum 13.99 (0.66-1.25); POTASSIUM 4.1 mmol/L (3.4-5.0)
[2020-10-16 03:30] VITALS: BP 114/56; PULSE 76; TEMP 98
--- NOTE | 2020-10-16 07:00 | NUR ---
Report with LACY Parra. Pt resting in bed with eyes closed, resp even and unlabored. IVF's infusing per orders.
[2020-10-16 07:11] LABS: BASO # 0.1 (0.0-0.2); BASO % 0.8 % (0.0-2.0); EOS # 0.1 (0.0-0.7); EOS % 1.6 % (0-4.0); GRAN # 5.5 (1.4-6.5); GRAN % 69.4 % (42.2-75.2); LYMPH # 1.1 (1.2-3.4); LYMPH % 13.9 % (20.0-51.0); MEAN CELL VOLUME 95 fl (80.0-100.0); MEAN CORPUSCULAR HGB CONC 33 g/dl (33.0-37.0); MONO # 1.1 (0.1-0.6); MONO % 13.7 % (1.7-9.3); PLATELET COUNT 177 K/mm3 (130-400); REDCELL DISTRIBUTION WIDTH-CV 14.2 % (11.5-14.5)
[2020-10-16 07:18] LABS: HEMATOCRIT 30.3 % (42.0-52.0); HEMOGLOBIN 9.9 g/dl (13.5-18.0); MEAN CORPUSCULAR HEMOGLOBIN 31 pg (27.0-31.0)
[2020-10-16 07:24] LABS: CALCIUM 7.5 mg/dL (8.4-10.2); CREATININE, serum 13.09 (0.66-1.25); MAGNESIUM 1.8 mg/dL (1.6-2.3); POTASSIUM 4.1 mmol/L (3.4-5.0)
[2020-10-16 07:54] VITALS: BP 95/54; PULSE 79; TEMP 97.9
--- NOTE | 2020-10-16 08:30 | NUR ---
Assessment complete. Pt resting in bed after using bathroom, standby assist, steady gait. Pt A&O x 3, denies pain at this time, reports loose stools having slowed and no more nausea at this time. IVF's infusing per orders through left forearm site without s/s of complications. No further needs reported. Call light in reach.
[2020-10-16 11:39] VITALS: BP 112/58; PULSE 78; TEMP 98.7
--- NOTE | 2020-10-16 13:17 | NUR ---
SW met with the patient to discuss discharge plan. The patient lives in [place] with his , Candy (ph#[phone]), and son, Hossein (ph#[phone]). He reports independence with ADLs and has a cane and walker, if needed. The patient's PCP is Dr. Torey Gilman and he receives his medications from [facility]. He reports no difficulties obtaining his meds. The patient does not have a DPOA-HC in EMR, but he states that he does have one completed and that it designates his . The patient plans to return home with his family upon discharge. No additional needs at this time. *Discharge plan: home with family*
--- NOTE | 2020-10-16 13:50 | NUR ---
Pt to wood and wood products labourer for procedure via bed.
[2020-10-16 14:25] VITALS: BP 128/68; PULSE 87
--- NOTE | 2020-10-16 15:15 | NUR ---
Pt taken to dialysis room directly from laborer high density press.
--- NOTE | 2020-10-16 18:10 | NUR ---
Pt back to room following dialysis, awake and alert, eating dinner, denies pain or needs, stating "I feel pretty good." IVF's continue infusing to left forearm site without s/s of complications. Call light in reach.
--- NOTE | 2020-10-16 18:45 | NUR ---
Report given to LACY Parra.
[2020-10-16 19:58] VITALS: BP 122/60; PULSE 83; TEMP 97.9
--- NOTE | 2020-10-16 20:00 | NUR ---
Assessment complete. Patient is alert and oriented with no complaints. No edema is noted. IV fluids infusing into left wrist IV. Lung sounds are clear. Right IJ dialysis cath's dressing is CDI; patient has no concerns of discomfort from the catheter. Hutchins catheter draining clear, yellow urine. Patient on contact precautions for Norovirus in stool. Call light in reach.
[2020-10-16 23:39] VITALS: BP 135/58; PULSE 90; TEMP 98.7
[2020-10-16 23:53] LABS: HEPATITIS B SURFACE ANTIBODY <2.0 (()); HEPATITIS B SURFACE ANTIGEN Negative (Negative); HEPATITIS C VIRUS ANTIBODY Negative (Negative)
[2020-10-17 03:34] VITALS: BP 139/57; PULSE 71; TEMP 98.6
[2020-10-17 07:13] LABS: BASO # 0.1 (0.0-0.2); BASO % 0.8 % (0.0-2.0); EOS # 0.1 (0.0-0.7); GRAN # 4.8 (1.4-6.5); GRAN % 67.5 % (42.2-75.2); HEMOGLOBIN 9.5 g/dl (13.5-18.0); LYMPH % 14.5 % (20.0-51.0); MEAN CELL VOLUME 93 fl (80.0-100.0); MEAN CORPUSCULAR HEMOGLOBIN 32 pg (27.0-31.0); MEAN CORPUSCULAR HGB CONC 34 g/dl (33.0-37.0); MEAN PLATELET VOLUME 11.3 fl (7.4-10.4); MONO # 1.1 (0.1-0.6); MONO % 14.8 % (1.7-9.3); PLATELET COUNT 146 K/mm3 (130-400); REDCELL DISTRIBUTION WIDTH-CV 13.9 % (11.5-14.5)
[2020-10-17 07:35] LABS: CREATININE, serum 7.05 (0.66-1.25); MAGNESIUM 1.6 mg/dL (1.6-2.3); PHOSPHOROUS 5.8 mg/dL (2.5-4.5); POTASSIUM 3.6 mmol/L (3.4-5.0)
[2020-10-17 08:01] VITALS: BP 124/55; PULSE 88; TEMP 99.2
[2020-10-17 09:47] LABS: KAPPA FREE LIGHT CHAIN-SERUM 128.08 mg/L (()); KAPPA LAMBDA RATIO 1.24 ratio (()); LAMDA FREE LIGHT CHAIN SERUM 102.97 mg/L (())
--- NOTE | 2020-10-17 09:49 | NUR ---
Pt assessment completed and charted, medications administered per mar. Pt A&O, independent in room, on room air, breathing is even and unlabored, LS cta, HRRR. BS active X4, pt had BM this morning, not observed by this nurse, denies diarrhea. pt c/o nausea/vomiting this morning, zofran administered per mar, emesis not observed by this nurse. Pt has LWR IV w/ LR @ 150 ml/hr, no issues. RIJ dialysis cath in place, covered w/ dressing CDI. Hutchins in place draining clear, yellow urine to dd. No edema noted, no further needs expressed at this time. Pt to dialysis this morning @ 0830.
[2020-10-17 12:34] VITALS: BP 132/78; PULSE 93; TEMP 97.8
--- NOTE | 2020-10-17 12:55 | NUR ---
Pt back from dialysis at this time. Denies further episodes of N/V since breakfast. Pt ordering lunch at this time. Report given to LACY Rider. Pt denies pain. Dialysis cath site, CDI. No further needs at this time.
--- NOTE | 2020-10-17 14:30 | NUR ---
After patient arrived back from dialysis, he ordered something to eat as he stated he felt hungry. Stated food stated good, but after about 5 bites, he started to feel nauseated and then vomited. He had mostly food in it, but did have some bright red blood. Approximately 50ml. Dr Cali notified. Pt now reports feeling fine, just no longer hungry
[2020-10-17 15:46] VITALS: BP 122/58; PULSE 74; TEMP 98.9
--- NOTE | 2020-10-17 17:00 | NUR ---
Pt has done okay this afternoon. Has not had anything to eat and not much to drink. IVF infusing. IJ dialysis to right side has had some drainage of blood. Pt had some dried blood around his neck and on his gown. Cleaned patient up and changed the dressing. No active bleeding noted. Hutchins to dependent drainage with clear yellow output. Pt reports not having any pain. Discussed with him that an EGD was scheduled for him tomorrow and that he is to not have anything to eat or drink after midnight. Pt stated that he understood. No other needs or questions, call light within reach.
[2020-10-17 19:10] VITALS: BP 110/66; PULSE 80; TEMP 98.8
--- NOTE | 2020-10-17 20:00 | NUR ---
Assessment complete. Patient is alert and oriented with no complaints of pain. He states he has not had anymore episodes of vomiting or vomiting blood since earlier today on dayshift. No edema is noted. Fluids infusing at 150 ml/hr; lung sounds are clear with fine crackles in bases; will notify BENOIT Marie. Right IJ dialysis catheter is not actively bleeding and site is dry. No new concerns, call light in reach.
[2020-10-17 23:51] VITALS: BP 124/60; PULSE 69; TEMP 97.4
[2020-10-18 04:00] VITALS: BP 108/70; PULSE 85; TEMP 98.8
[2020-10-18 07:54] LABS: BASO % 0.5 % (0.0-2.0); EOS # 0.2 (0.0-0.7); EOS % 2.6 % (0-4.0); GRAN # 5.5 (1.4-6.5); GRAN % 65.2 % (42.2-75.2); LYMPH # 1.4 (1.2-3.4); LYMPH % 16.8 % (20.0-51.0); MEAN CELL VOLUME 96 fl (80.0-100.0); MEAN CORPUSCULAR HGB CONC 33 g/dl (33.0-37.0); MEAN PLATELET VOLUME 10.6 fl (7.4-10.4); MONO # 1.2 (0.1-0.6); MONO % 14.4 % (1.7-9.3); PLATELET COUNT 107 K/mm3 (130-400); RED BLOOD COUNT 2.81 M/mm3 (4.20-5.60); REDCELL DISTRIBUTION WIDTH-CV 13.7 % (11.5-14.5)
[2020-10-18 07:55] LABS: HEMOGLOBIN 8.8 g/dl (13.5-18.0); MEAN CORPUSCULAR HEMOGLOBIN 31 pg (27.0-31.0)
--- NOTE | 2020-10-18 08:06 | NUR ---
Pt doing well this morning, no pain complaints. Drsg to right IJ still intact from yesterday. Gauze under dressing is red from blood. IV to left wrist with fluids infusing. Pt is aware that he is having an upper GI today. No needs, call light within reach, will continue to monitor
[2020-10-18 08:09] VITALS: BP 121/61; PULSE 79; TEMP 98.2
[2020-10-18 08:15] LABS: CALCIUM 8.2 mg/dL (8.4-10.2); CREATININE, serum 3.86 (0.66-1.25); MAGNESIUM 2.1 mg/dL (1.6-2.3); POTASSIUM 3.5 mmol/L (3.4-5.0)
--- NOTE | 2020-10-18 10:00 | NUR ---
Pt off floor for EGD
[2020-10-18 10:44] VITALS: BP 91/74; PULSE 87; TEMP 99.4
--- NOTE | 2020-10-18 10:44 | NUR ---
Pt back from EGD, he did well and reports feeling well. VSS. Pt is sitting up on the side of the bed. No pain complaints. Hutchins to dependent drainage. IVF infusing.
--- NOTE | 2020-10-18 11:45 | NUR ---
Pt continues to do well. Tele called with increase in heart rate. Pt was using the restroom, but reports feeling fine. Dr Llanos notified of this. Pt has ordered and is waiting on his lunch. Denies having any pain, VSS, will continue to monitor
[2020-10-18 12:00] VITALS: BP 102/59; PULSE 88; TEMP 98.2
--- NOTE | 2020-10-18 12:45 | NUR ---
[place] with infection control called regarding pt being in precautions for noro virus. Pt has not had a loose bowel movement in over a week. Okay to take off precautions. Educated pt to wash hands thoroughly with soap and water after using the restroom. Pt verbalized understanding. Pt is finishing eating lunch. He is only eating a small amount as he is not wanting to get sick.
[2020-10-18 15:52] VITALS: BP 115/57; PULSE 69; TEMP 98.4
--- NOTE | 2020-10-18 18:00 | NUR ---
Pt has done well this afternoon. He states that he has more of an appetite today. Hutchins has been removed. Instructed on using the urinal so that we can get an accurate measurement of his output. Pt verbalized understanding. Pt denies any needs, will continue to monitor
[2020-10-18 19:10] VITALS: BP 111/57; PULSE 81; TEMP 98.4
[2020-10-18 20:59] LABS: CREATININE, serum 3.68 (0.66-1.25); POTASSIUM 3.3 mmol/L (3.4-5.0)
[2020-10-19] VITALS (7 sets, daily range): BP systolic 104–134; BP diastolic 48–61; PULSE 58–84; TEMP 98–98.8
--- NOTE | 2020-10-19 05:40 | NUR ---
PATIENT RESTED WELL THROUGH NIGHT, WOKE EASILY WITH EACH ENTRY INTO ROOM. PATIENT REMAINS IN GOOD SPIRITS. N/C OR NEEDS VOICED
[2020-10-19 06:45] LABS: ALBUMIN 2.7 gm/dL (3.5-5.0); CALCIUM 7.9 mg/dL (8.4-10.2); CREATININE, serum 3.57 (0.66-1.25); PHOSPHOROUS 3.6 mg/dL (2.5-4.5); POTASSIUM 3.3 mmol/L (3.4-5.0)
[2020-10-19 06:51] LABS: BASO # 0.1 (0.0-0.2); BASO % 0.8 % (0.0-2.0); EOS # 0.3 (0.0-0.7); EOS % 4.3 % (0-4.0); GRAN # 4.4 (1.4-6.5); GRAN % 59.2 % (42.2-75.2); LYMPH # 1.7 (1.2-3.4); LYMPH % 22.2 % (20.0-51.0); MEAN CELL VOLUME 97 fl (80.0-100.0); MEAN CORPUSCULAR HGB CONC 31 g/dl (33.0-37.0); MEAN PLATELET VOLUME 11.3 fl (7.4-10.4); PLATELET COUNT 106 K/mm3 (130-400); RED BLOOD COUNT 2.68 M/mm3 (4.20-5.60); REDCELL DISTRIBUTION WIDTH-CV 13.6 % (11.5-14.5)
[2020-10-19 07:42] LABS: HEMATOCRIT 26.1 % (42.0-52.0); HEMOGLOBIN 8.2 g/dl (13.5-18.0); MEAN CORPUSCULAR HEMOGLOBIN 31 pg (27.0-31.0)
--- NOTE | 2020-10-19 08:20 | NUR ---
Shift assessment complete. Sitting on edge of bed eating breakfast. Denies pain or other concerns. A&Ox4. Heart RRR. Lungs CTA. Right wrist IV w/LR infusing at 125 ml/hr. Right IJ dialysis cath insertion site CDI, tegaderm falling off, dressing changed. Denies needs currently. Call light in reach.
[2020-10-20 04:13] VITALS: BP 111/53; PULSE 64; TEMP 98.9
--- NOTE | 2020-10-20 05:12 | NUR ---
PATIENT SLEPT WELL THROUGH NIGHT. WAKES EASILY FOR PERSONAL CARES. DENIES ANY PAIN. N/C VOICED
[2020-10-20 07:21] LABS: BASO # 0.1 (0.0-0.2); BASO % 0.8 % (0.0-2.0); EOS # 0.3 (0.0-0.7); EOS % 4.6 % (0-4.0); GRAN # 4.2 (1.4-6.5); GRAN % 58.1 % (42.2-75.2); LYMPH # 1.7 (1.2-3.4); MEAN CELL VOLUME 96 fl (80.0-100.0); MEAN CORPUSCULAR HGB CONC 33 g/dl (33.0-37.0); MEAN PLATELET VOLUME 12.4 fl (7.4-10.4); MONO # 0.9 (0.1-0.6); MONO % 12.9 % (1.7-9.3); PLATELET COUNT 103 K/mm3 (130-400); RED BLOOD COUNT 2.51 M/mm3 (4.20-5.60); REDCELL DISTRIBUTION WIDTH-CV 13.1 % (11.5-14.5)
[2020-10-20 07:22] LABS: HEMATOCRIT 24.2 % (42.0-52.0); MEAN CORPUSCULAR HEMOGLOBIN 32 pg (27.0-31.0)
[2020-10-20 07:26] LABS: ALBUMIN 2.6 gm/dL (3.5-5.0); BILIRUBIN,TOTAL 0.5 mg/dL (0.0-1.0); CALCIUM 7.7 mg/dL (8.4-10.2); CREATININE, serum 2.92 (0.66-1.25); TOTAL PROTEIN 5.1 gm/dL (6.4-8.2)
[2020-10-20] MEDS ORDERED: PROTONIX 40MG T40 MG PO (09:11)
[2020-10-20 09:33] VITALS: BP 120/57; PULSE 72; TEMP 98.2
--- NOTE | 2020-10-20 11:51 | NUR ---
I agree w/ the student nurse's assessment. Pt feeling slightly nauseous this AM, relief w/marissa. Able to tolerate breakfast well. Discharge paperwork done, awaiting sign off from .
[2020-10-20 12:14] VITALS: BP 122/62; PULSE 89; TEMP 98.2
--- NOTE | 2020-10-20 12:56 | NUR ---
Spoke w/ on phone. Said he was okay w/pt d/c'ing today w/o coming to see him. Entered order for nursing staff to remove dialysis catheter.
--- NOTE | 2020-10-20 14:24 | NUR ---
Right IJ dialysis catheter removed, tip intact. Pressure held to site for 10 minutes. No signs of bleeding or complication, pressure dressing applied. Left wrist INT removed, tip intact. Discharge instructions discussed w/pt, all questions answered. Pt waiting in room for to pick him up.
--- NOTE | 2020-10-20 14:27 | NUR ---
Pt resting in bed upon start of shift. Pt was alert and oriented x4 and compliant during shift assessment. Administered prescribed medications and removed IV prior to discharge. Pt is in good spirits.
--- NOTE | 2020-10-20 14:30 | NUR ---
Pt taken out via by medical unit aide tech. Accompanied by and son. All belongings in possession.
[2020-10-22 10:06] LABS: A/G RATIO (PEP) 0.71 (()); BETA GLOBULINS (PEP) 0.9 g/dL (0.7-1.2)
== END 2020-10-20 14:30 | disposition home or self-care (01) | DRG 682 ==
LOC: MEDICAL 10:46
PROVIDERS: Family Medicine; Internal Medicine Nephrology; Nurse Practitioner; ADMIT Internal Medicine
PROC: 02H633Z Insertion of Infusion Device into Right Atrium, Percutaneous Approach (ICD-10-PCS; principal; 2020-10-17)
PROC: 5A1D70Z Performance of Urinary Filtration, Intermittent, Less than 6 Hours Per Day (ICD-10-PCS; 2020-10-17)
PROC: 0DB78ZX Excision of Stomach, Pylorus, Via Natural or Artificial Opening Endoscopic, Diagnostic (ICD-10-PCS; 2020-10-18)
DX: N17.0 Acute kidney failure with tubular necrosis (principal); K85.20 Alcohol induced acute pancreatitis without necrosis or infection; K22.6 Gastro-esophageal laceration-hemorrhage syndrome; E87.2 Acidosis; M62.82 Rhabdomyolysis; A08.39 Other viral enteritis; I10 Essential (primary) hypertension; E78.5 Hyperlipidemia, unspecified; E87.6 Hypokalemia; K21.00 Gastro-esophageal reflux disease with esophagitis, without bleeding; K25.7 Chronic gastric ulcer without hemorrhage or perforation; K29.80 Duodenitis without bleeding; K44.9 Diaphragmatic hernia without obstruction or gangrene; E03.9 Hypothyroidism, unspecified; F10.20 Alcohol dependence, uncomplicated; M10.9 Gout, unspecified; M19.90 Unspecified osteoarthritis, unspecified site; Z79.82 Long term (current) use of aspirin; Z20.822 Contact with and (suspected) exposure to COVID-19
CPT/HCPCS: 99223-AI; 99232-AI; 99233-AI; 99239; A4314; J0690; J1644; J2250; J2405; J2704; J3010; J3475; J7030; J7040; J7120

== ENCOUNTER 2021-09-12 17:40 | Inpatient (IN) | payer MEDICARE, BC ==
[~2021-09-12] VITALS: Ht 167.6 cm; Wt 75.0 kg
[~2021-09-12 17:40] MED LIST changes: +PROTONIX 40MG T40 MG PO; +ZOFRAN 4MG T4 MG/TAB PO
[2021-09-12 19:38] LABS: BASO # 0.1 K/mm3 (0.0-0.2); BASO % 0.9 % (0.0-2.0); EOS # 0.1 K/mm3 (0.0-0.7); EOS % 1.4 % (0.0-4.0); GRAN # 6.4 K/mm3 (1.4-6.5); GRAN % 69.7 % (42.2-75.2); HEMOGLOBIN 10.3 g/dl (13.5-18.0); LYMPH # 1.1 K/mm3 (1.2-3.4); LYMPH % 11.5 % (20.0-51.0); MEAN CELL VOLUME 94 fl (80.0-100.0); MEAN CORPUSCULAR HEMOGLOBIN 33 pg (27-31); MEAN CORPUSCULAR HGB CONC 35 g/dl (33.0-37.0); MEAN PLATELET VOLUME 9.9 fl (7.4-10.4); MONO # 1.5 K/mm3 (0.1-0.6); PLATELET COUNT 177 K/mm3 (130-400); RED BLOOD COUNT 3.17 M/mm3 (4.20-5.60); REDCELL DISTRIBUTION WIDTH-CV 13.8 % (11.5-14.5)
[2021-09-12 19:39] LABS: HEMATOCRIT 29.7 % (42.0-52.0)
[2021-09-12 20:05] LABS: ALBUMIN 3.2 gm/dL (3.4-4.8); BILIRUBIN,TOTAL 0.5 mg/dL (0.2-1.2); C-REACTIVE PROTEIN 3.03 mg/dL (0.00-0.50); CALCIUM 8.8 mg/dL (8.4-10.2); CREATININE, serum 19.62 mg/dL (0.72-1.25); POTASSIUM 4.2 mmol/L (3.5-4.5); TOTAL PROTEIN 6.9 gm/dL (6.2-8.1)
[2021-09-12 21:05] LABS: COLLECTION METHOD CLEAN CATCH
[2021-09-12 21:14] LABS: PH 5 (5-8); SQUAMOUS EPITHELIAL 0-2 /hpf (0-10); URINE APPEARANCE Hazy (CLEAR/HAZY); URINE BACTERIA None Seen /hpf (NONE SEEN); URINE BILIRUBIN Negative (NEGATIVE); URINE BLOOD 2+ (NEGATIVE); URINE COLOR Yellow (YELLOW); URINE GLUCOSE Negative (NEGATIVE); URINE KETONE Trace (NEGATIVE); URINE LEUKOCYTE ESTERASE Negative (NEGATIVE); URINE NITRATE Negative (NEGATIVE); URINE PROTEIN(semi-quant) 2+ (NEGATIVE); URINE UROBILINOGEN Negative (NEGATIVE)
[2021-09-13 02:22] VITALS: BP 133/65; PULSE 72; TEMP 97.9
[2021-09-13 03:06] LABS: COLLECTION METHOD CLEAN CATCH
[2021-09-13 03:16] LABS: PH 5 (5-8); SQUAMOUS EPITHELIAL 0-2 /hpf (0-10); URINE APPEARANCE Hazy (CLEAR/HAZY); URINE BACTERIA Rare /hpf (NONE SEEN); URINE BILIRUBIN Negative (NEGATIVE); URINE BLOOD 3+ (NEGATIVE); URINE COLOR Yellow (YELLOW); URINE GLUCOSE 1+ (NEGATIVE); URINE KETONE Trace (NEGATIVE); URINE LEUKOCYTE ESTERASE Negative (NEGATIVE); URINE NITRATE Negative (NEGATIVE); URINE PROTEIN(semi-quant) 2+ (NEGATIVE); URINE RBC >50 /hpf (0-2); URINE UROBILINOGEN Negative (NEGATIVE)
[2021-09-13 04:04] LABS: CLOSTRIDIUM DIFF A/B NEG; CLOSTRIDIUM DIFF A/B INTERP No C.diff present
[2021-09-13 04:16] VITALS: BP 126/62; PULSE 62; TEMP 98.2
[2021-09-13 06:40] LABS: BASO # 0.1 K/mm3 (0.0-0.2); BASO % 0.6 % (0.0-2.0); EOS # 0.1 K/mm3 (0.0-0.7); GRAN % 73.2 % (42.2-75.2); LYMPH # 0.9 K/mm3 (1.2-3.4); MEAN CELL VOLUME 95 fl (80.0-100.0); MEAN CORPUSCULAR HGB CONC 34 g/dl (33.0-37.0); MEAN PLATELET VOLUME 10.3 fl (7.4-10.4); MONO # 1.1 K/mm3 (0.1-0.6); MONO % 13.7 % (1.7-9.3); PLATELET COUNT 157 K/mm3 (130-400); RED BLOOD COUNT 2.82 M/mm3 (4.20-5.60); REDCELL DISTRIBUTION WIDTH-CV 13.9 % (11.5-14.5)
[2021-09-13 06:47] LABS: HEMATOCRIT 26.7 % (42.0-52.0); HEMOGLOBIN 9.1 g/dl (13.5-18.0); MEAN CORPUSCULAR HEMOGLOBIN 32 pg (27-31)
[2021-09-13 07:03] LABS: CALCIUM 7.9 mg/dL (8.4-10.2); CREATININE, serum 18.96 mg/dL (0.72-1.25)
[2021-09-13 08:15] VITALS: BP 143/62; PULSE 72; TEMP 98.1
[2021-09-13 12:15] VITALS: BP 97/42; PULSE 64; TEMP 97.8
[2021-09-13 15:36] VITALS: BP 102/37; PULSE 66; TEMP 98
[2021-09-13 20:27] VITALS: BP 107/51; PULSE 68; TEMP 98.3
[2021-09-14] VITALS (7 sets, daily range): BP systolic 97–116; BP diastolic 32–50; PULSE 60–71; TEMP 97.7–98.6
[2021-09-14 06:16] LABS: BASO # 0.1 K/mm3 (0.0-0.2); BASO % 0.8 % (0.0-2.0); EOS # 0.2 K/mm3 (0.0-0.7); EOS % 2.4 % (0.0-4.0); GRAN # 4.7 K/mm3 (1.4-6.5); GRAN % 65.3 % (42.2-75.2); LYMPH # 1.2 K/mm3 (1.2-3.4); LYMPH % 16.3 % (20.0-51.0); MEAN CELL VOLUME 95 fl (80.0-100.0); MEAN CORPUSCULAR HGB CONC 34 g/dl (33.0-37.0); MEAN PLATELET VOLUME 10.3 fl (7.4-10.4); MONO % 14.5 % (1.7-9.3); PLATELET COUNT 167 K/mm3 (130-400); RED BLOOD COUNT 2.45 M/mm3 (4.20-5.60); REDCELL DISTRIBUTION WIDTH-CV 14.1 % (11.5-14.5)
[2021-09-14 06:32] LABS: HEMATOCRIT 23.2 % (42.0-52.0); HEMOGLOBIN 7.9 g/dl (13.5-18.0); MEAN CORPUSCULAR HEMOGLOBIN 32 pg (27-31)
[2021-09-14 06:44] LABS: CALCIUM 7.4 mg/dL (8.4-10.2); CREATININE, serum 17.85 mg/dL (0.72-1.25); POTASSIUM 3.9 mmol/L (3.5-4.5)
[2021-09-15 04:15] VITALS: BP 103/43; PULSE 67; TEMP 97.9
[2021-09-15 06:24] LABS: BASO % 0.5 % (0.0-2.0); EOS # 0.2 K/mm3 (0.0-0.7); EOS % 2.2 % (0.0-4.0); GRAN # 4.9 K/mm3 (1.4-6.5); GRAN % 66.1 % (42.2-75.2); LYMPH # 1.3 K/mm3 (1.2-3.4); LYMPH % 18.1 % (20.0-51.0); MEAN CELL VOLUME 93 fl (80.0-100.0); MEAN CORPUSCULAR HGB CONC 35 g/dl (33.0-37.0); MEAN PLATELET VOLUME 10.5 fl (7.4-10.4); MONO # 0.9 K/mm3 (0.1-0.6); MONO % 12.6 % (1.7-9.3); PLATELET COUNT 166 K/mm3 (130-400); RED BLOOD COUNT 2.27 M/mm3 (4.20-5.60); REDCELL DISTRIBUTION WIDTH-CV 13.9 % (11.5-14.5)
[2021-09-15 06:31] LABS: HEMATOCRIT 21.2 % (42.0-52.0); HEMOGLOBIN 7.4 g/dl (13.5-18.0); MEAN CORPUSCULAR HEMOGLOBIN 33 pg (27-31)
[2021-09-15 06:42] LABS: CALCIUM 7.5 mg/dL (8.4-10.2); CREATININE, serum 17.23 mg/dL (0.72-1.25); MAGNESIUM 1.5 mg/dL (1.6-2.6); PHOSPHOROUS 8.6 mg/dL (2.3-4.7); POTASSIUM 3.7 mmol/L (3.5-4.5)
[2021-09-15 07:19] VITALS: BP 110/46; PULSE 78; TEMP 98.2
[2021-09-15 12:00] VITALS: BP 125/82; PULSE 73; TEMP 98
[2021-09-15 13:06] LABS: CREATININE, serum 16.64 mg/dL (0.72-1.25)
[2021-09-15 13:16] LABS: FRACTIONAL EXCRETION OF NA+ 18.32 %
[2021-09-15 16:00] VITALS: BP 110/48; PULSE 71; TEMP 98
[2021-09-15 20:38] VITALS: BP 116/53; PULSE 72; TEMP 98.2
[2021-09-16] VITALS (10 sets, daily range): BP systolic 106–145; BP diastolic 46–81; PULSE 73–88; TEMP 97.9–98.8
[2021-09-16 06:46] LABS: BASO % 0.5 % (0.0-2.0); EOS # 0.2 K/mm3 (0.0-0.7); EOS % 2.7 % (0.0-4.0); GRAN # 5.3 K/mm3 (1.4-6.5); GRAN % 71.3 % (42.2-75.2); LYMPH % 13.8 % (20.0-51.0); MEAN CELL VOLUME 92 fl (80.0-100.0); MEAN CORPUSCULAR HGB CONC 35 g/dl (33.0-37.0); MONO # 0.8 K/mm3 (0.1-0.6); MONO % 10.9 % (1.7-9.3); PLATELET COUNT 156 K/mm3 (130-400); RED BLOOD COUNT 2.33 M/mm3 (4.20-5.60)
[2021-09-16 06:48] LABS: HEMOGLOBIN 7.5 g/dl (13.5-18.0)
[2021-09-16 06:49] LABS: HEMATOCRIT 21.4 % (42.0-52.0); MEAN CORPUSCULAR HEMOGLOBIN 32 pg (27-31)
[2021-09-16 07:07] LABS: CALCIUM 7.5 mg/dL (8.4-10.2); CREATININE, serum 16.18 mg/dL (0.72-1.25); POTASSIUM 3.4 mmol/L (3.5-4.5)
[2021-09-16 07:08] LABS: PROTHROMBIN TIME 10.9 SECONDS (9.7-12.8)
[2021-09-16 07:31] LABS: PHOSPHOROUS 7.7 mg/dL (2.3-4.7)
[2021-09-16 18:14] LABS: HEPATITIS B SURFACE ANTIBODY <2.0 (()); HEPATITIS B SURFACE ANTIGEN Negative (Negative); HEPATITIS C VIRUS ANTIBODY Negative (Negative)
[2021-09-17] VITALS (10 sets, daily range): BP systolic 121–149; BP diastolic 54–84; PULSE 71–87; TEMP 97.7–98.9
[2021-09-17 06:15] LABS: BASO # 0.1 K/mm3 (0.0-0.2); BASO % 0.7 % (0.0-2.0); EOS # 0.2 K/mm3 (0.0-0.7); EOS % 3.1 % (0.0-4.0); GRAN # 4.3 K/mm3 (1.4-6.5); LYMPH # 1.1 K/mm3 (1.2-3.4); LYMPH % 15.8 % (20.0-51.0); MEAN CELL VOLUME 95 fl (80.0-100.0); MEAN CORPUSCULAR HGB CONC 34 g/dl (33.0-37.0); MEAN PLATELET VOLUME 10.6 fl (7.4-10.4); MONO # 1.1 K/mm3 (0.1-0.6); MONO % 15.8 % (1.7-9.3); PLATELET COUNT 160 K/mm3 (130-400); RED BLOOD COUNT 2.17 M/mm3 (4.20-5.60); REDCELL DISTRIBUTION WIDTH-CV 14.1 % (11.5-14.5)
[2021-09-17 06:20] LABS: HEMATOCRIT 20.6 % (42.0-52.0); MEAN CORPUSCULAR HEMOGLOBIN 32 pg (27-31)
[2021-09-17 06:28] LABS: CALCIUM 7.6 mg/dL (8.4-10.2); CREATININE, serum 11.82 mg/dL (0.72-1.25); POTASSIUM 3.4 mmol/L (3.5-4.5)
[2021-09-17 18:16] LABS: HEMOGLOBIN 9.5 g/dl (13.5-18.0)
[2021-09-17 18:17] LABS: HEMATOCRIT 27.4 % (42.0-52.0)
[2021-09-18 03:52] VITALS: BP 130/61; PULSE 87; TEMP 98.7
[2021-09-18 05:46] LABS: BASO # 0.1 K/mm3 (0.0-0.2); BASO % 0.6 % (0.0-2.0); EOS # 0.3 K/mm3 (0.0-0.7); EOS % 3.3 % (0.0-4.0); GRAN # 4.8 K/mm3 (1.4-6.5); LYMPH # 1.3 K/mm3 (1.2-3.4); LYMPH % 16.8 % (20.0-51.0); MEAN CELL VOLUME 91 fl (80.0-100.0); MEAN CORPUSCULAR HGB CONC 35 g/dl (33.0-37.0); MEAN PLATELET VOLUME 10.5 fl (7.4-10.4); MONO # 1.3 K/mm3 (0.1-0.6); MONO % 16.3 % (1.7-9.3); PLATELET COUNT 151 K/mm3 (130-400); REDCELL DISTRIBUTION WIDTH-CV 15.9 % (11.5-14.5)
[2021-09-18 05:51] LABS: HEMATOCRIT 23.7 % (42.0-52.0); HEMOGLOBIN 8.2 g/dl (13.5-18.0); MEAN CORPUSCULAR HEMOGLOBIN 32 pg (27-31)
[2021-09-18 06:01] LABS: CALCIUM 7.9 mg/dL (8.4-10.2); CREATININE, serum 7.72 mg/dL (0.72-1.25); POTASSIUM 3.2 mmol/L (3.5-4.5)
[2021-09-18 07:32] VITALS: BP 130/48; PULSE 78; TEMP 98.6
[2021-09-18] MEDS ORDERED: PRINIVIL20 MG (11:29)
[2021-09-18] MEDS ORDERED: PRINIVIL20 MG PO (11:30)
[2021-09-18] MEDS ORDERED: TOPROL XL100 MG PO (11:31)
[2021-09-18] MEDS ORDERED: PHOSLO667 MG PO (11:36)
[2021-09-18] MEDS ORDERED: PROTONIX 40MG T40 MG PO (11:37)
[2021-09-18] MEDS ORDERED: PROBIOTIC ACID1 EAC3 PO (11:37)
[2021-09-18 11:42] VITALS: BP 156/83; PULSE 76; TEMP 98.3
== END 2021-09-18 14:00 | disposition home or self-care (01) | DRG 674 ==
LOC: COL.ER 17:40 → SURG 23:48
PROVIDERS: Family Medicine; Internal Medicine; Internal Medicine Nephrology; Physician Assistant; Student in an Organized Health Care Education/Training Program
PROC: 0JH63XZ Insertion of Tunneled Vascular Access Device into Chest Subcutaneous Tissue and Fascia, Percutaneous Approach (ICD-10-PCS; principal; 2021-09-15)
PROC: 02H633Z Insertion of Infusion Device into Right Atrium, Percutaneous Approach (ICD-10-PCS; 2021-09-15)
DX: N17.0 Acute kidney failure with tubular necrosis (principal); E87.2 Acidosis; D64.9 Anemia, unspecified; M10.9 Gout, unspecified; E78.5 Hyperlipidemia, unspecified; M19.90 Unspecified osteoarthritis, unspecified site; E86.0 Dehydration; I12.9 Hypertensive chronic kidney disease with stage 1 through stage 4 chronic kidney disease, or unspecified chronic kidney disease; N18.30 Chronic kidney disease, stage 3 unspecified; F10.20 Alcohol dependence, uncomplicated; E87.6 Hypokalemia; E83.39 Other disorders of phosphorus metabolism; I25.2 Old myocardial infarction; Z95.5 Presence of coronary angioplasty implant and graft; Z79.82 Long term (current) use of aspirin
CPT/HCPCS: 99223-AI; 99232-AI; 99233-AI; 99239; A4314; J1644; J1756; J2250; J2405; J3010; J3475; J7030; J7120; P9016; Q5106

== ENCOUNTER → 2021-10-27 | Outpatient (CLI) | payer MEDICARE, BC ==
[~2021-10-27] VITALS: Ht 167.6 cm; Wt 69.3 kg
[~2021-10-27] MED LIST changes: +CRESTOR40 MG PO; +PHOSLO667 MG PO; +PRINIVIL20 MG; +PRINIVIL20 MG PO; +PROBIOTIC ACID1 EAC3 PO; +TOPROL XL100 MG PO
[2021-10-27 11:55] VITALS: BP 145/80; PULSE 73; TEMP 97.8
[2021-10-27 12:32] VITALS: BP 156/80; PULSE 74
== END ==
LOC: COL.RAD 10:50
DX: Z49.01 Encounter for fitting and adjustment of extracorporeal dialysis catheter (principal)